=== PATIENT | female | born 1965 | race Caucasian/White ===

== ENCOUNTER → 2019-04-30 | Outpatient (CLI) | payer BC ==
--- NOTE | 2019-05-03 14:03 | MM ---
Reason for exam: screening (asymptomatic). Last mammogram was performed 7 years and 4 months ago. History: Benign excisional biopsy of the right breast, 2002. Took hormonal contraceptives for 5 years. Physical Findings: A clinical breast exam by your physician is recommended on an annual basis and results should be correlated with mammographic findings. MG 3D Screening Mammo W/Cad Bilateral CC and MLO view(s) were taken. Prior study comparison: December 27, 2011, bilateral digital screening mammo w/CAD. November 30, 2010, bilateral digital screening mammo w/CAD. There are scattered fibroglandular densities. There are benign appearing round dystrophic calcifications bilaterally. There is no discrete abnormality. ASSESSMENT: Benign, BI-RAD 2 RECOMMENDATION: Routine screening mammogram of both breasts in 1 year.
== END | disposition home or self-care (01) ==
LOC: RADMAMWWP 12:58
PROVIDERS: ATTEND Family Medicine
DX: Z12.31 Encounter for screening mammogram for malignant neoplasm of breast (principal)
CPT/HCPCS: 77063; 77067

== ENCOUNTER → 2023-07-14 | Outpatient (CLI) | payer OTHER ==
--- NOTE | 2023-07-14 13:58 | MM ---
Reason for Exam: Clinical finding. Last mammogram was performed 4 year(s) and 3 month(s) ago. Patient History: Menarche at age 13. First Full-Term at age 16. Hysterectomy at age 46. Patient used Hormonal Contraceptives for 5 years. 2002, Benign Excisional Biopsy on the right side. Risk Values: Jessie 5 year model risk: 1.0%. NCI Lifetime model risk: 6.9%. Prior Study Comparison: 12/27/2011 Bilateral Screening Mammogram, [facility]. 01/06/2012 Right Diagnostic Ultrasound, [facility]. 04/30/2019 Bilateral Screening Mammogram, [facility]. Tissue Density: There are scattered areas of fibroglandular density. Findings: Analyzed By CAD. The pattern is symmetrical. Scattered benign calcifications are present. No significant interval change is evident. No suspicious abnormality within the left breast to account for previous pelvic radiation. Patient reports this has resolved following antibiotics. No suspicious groups of microcalcifications, spiculated or lobular masses, architectural distortion or other secondary signs of malignancy are mammographically apparent. Overall Assessment: Benign, BI-RAD 2 Management: Screening Mammogram of both breasts in 1 year. A negative mammogram report should not preclude additional follow up of suspicious palpable abnormalities. Patient should continue monthly self breast exam. A clinical breast exam by your physician is recommended on an annual basis and results should be correlated with mammographic findings. Electronically signed and approved by: Matt Ba D.O. Radiologis
== END | disposition home or self-care (01) ==
LOC: RADMAMWWP 13:00
PROVIDERS: ATTEND Family Medicine
DX: R92.323 Mammographic fibroglandular density, bilateral breasts (principal); N61.0 Mastitis without abscess
CPT/HCPCS: 77062; 77066

== ENCOUNTER 2023-10-27 14:03 | Inpatient (IN) | payer OTHER ==
--- NOTE | 2023-10-27 14:44 | ED ---
Skin/Abscess/FB HPI - General Source: patient, RN notes reviewed Mode of arrival: ambulatory Limitations: no limitations <Francesca Mayer - Last Filed: 10/27/23 14:38> - General Source: patient, RN notes reviewed Mode of arrival: ambulatory Limitations: no limitations <Chantla Gandara - Last Filed: 10/27/23 18:30> - General Chief complaint: Skin/Abscess/Foreign Body Stated complaint: L breast pain Time Seen by Provider: 10/27/23 14:38 - History of Present Illness Initial comments: Quick Note: This is a 57-year-old female who presents to the emergency department for left breast pain and swelling. She has had 3 bouts of mastitis within the last several months. She finished a 10-day course of antibiotics about a month ago. States that each time she finishes antibiotics it resolves and then returns shortly afterwards. She has never had the area drained. States that this time the pain began yesterday and this morning she noticed an area that started to become red and raised, prompting her to come to the emergency department. Denies any fevers or chills. She does have fairly severe pain and nausea. (Francesca Mayer) 57-year-old female presented to the ER with a chief complaint of left breast pain and swelling. Patient reports she has had 3 episodes of mastitis within the last several of months. She has seen primary care physician and has had multiple rounds of antibiotics. She states her last dose was approximately 3 weeks ago. Patient reports this weekend she started to note a red ring around her nipple that was mildly painful. She states this morning she noticed the area was red, raised and extremely tender to touch. She does report nipple pratibha inage yesterday. Patient does report mild nausea due to the pain. She denies any fevers, chills, chest pain, shortness of breath, abdominal pain or peripheral edema. (Chantal Gandara) - Related Data Home Medications Medication Instructions Recorded Confirmed Levothyroxine Sodium [Synthroid] 175 mcg PO DAILY 11/01/14 10/27/23 Atorvastatin [Lipitor] 80 mg PO DAILY 10/27/23 10/27/23 Citalopram Hydrobromide [CeleXA] 20 mg PO DAILY 10/27/23 10/27/23 Cyclobenzaprine [Flexeril] 10 mg PO DAILY 10/27/23 10/27/23 LORazepam [Ativan] 1 mg PO DAILY 10/27/23 10/27/23 lamoTRIgine 100 mg PO DAILY 10/27/23 10/27/23 lisinopriL [Zestril] 10 mg PO DAILY 10/27/23 10/27/23 metFORMIN HCL [Glucophage] 850 mg PO DAILY 10/27/23 10/27/23 Allergies Allergy/AdvReac Type Severity Reaction Status Date / Time No Known Allergies Allergy Verified 10/27/23 16:22 Review of Systems ROS Other: All systems not noted in ROS Statement are negative. <Francesca Mayer - Last Filed: 10/27/23 14:38> ROS Other: All systems not noted in ROS Statement are negative. <Chantal Gandara - Last Filed: 10/27/23 18:30> ROS Statement: Those systems with pertinent positive or pertinent negative responses have been documented in the HPI. Past Medical History Past Medical History: Diabetes Mellitus, Thyroid Disorder History of Any Multi-Drug Resistant Organisms: None Reported Past Surgical History: Bladder Surgery, Hysterectomy, Orthopedic Surgery, Tubal Ligation Past Psychological History: Anxiety, Depression Smoking Status: Never smoker Past Alcohol Use History: Occasional Past Drug Use History: None Reported <Francesca Mayer - Last Filed: 10/27/23 14:38> General Exam Limitations: no limitations <Francesca Mayer - Last Filed: 10/27/23 14:38> Limitations: no limitations General appearance: alert, in no apparent distress Respiratory exam: Present: normal lung sounds bilaterally. Absent: respiratory distress, wheezes, rales, rhonchi, stridor Cardiovascular Exam: Present: regular rate, normal rhythm, normal heart sounds. Absent: systolic murmur, diastolic murmur, rubs, gallop, clicks Neurological exam: Present: alert, oriented X3, CN II-XII intact Skin exam: Present: warm, dry, intact, normal color, other (Left breast has an erythematous raised indurated area approximately 2 x 2 cm just inferior to nipple. Lymphangitis present. No nipple drainage. Tenderness to palpation. No palpable lymphadenopathy) <Chantal Gandara - Last Filed: 10/27/23 18:30> - General Exam Comments Initial Comments: Visual Physical Exam Vital signs reviewed General: Well-appearing, nontoxic, no acute distress. Head: Normocephalic, atraumatic Eyes: PERRLA, EOMI ENT: Airway patent Chest: Nonlabored breathing Skin: No visual rash, normal skin tone Neuro: Alert and oriented 3 Musculoskeletal: No gross abnormalities (Francesca Mayer) Course <Chantal Gandara - Last Filed: 10/27/23 18:30> Vital Signs 10/27/23 14:09 Temperature 97.9 F Pulse Rate 124 H Respiratory 18 Rate Blood Pressure 184/83 O2 Sat by Pulse 96 Oximetry - Reevaluation(s) Reevaluation #1: 10/27/23 16:[address] Nelson, [facility], who accepts medical admission. (Chantal Gandara) Medical Decision Making <Francesca Mayer - Last Filed: 10/27/23 14:38> - Lab Data Result diagrams: 10/27/23 14:27 10/27/23 14:27 - Radiology Data Radiology results: report reviewed, image reviewed <Chantal Gandara - Last Filed: 10/27/23 18:30> - Medical Decision Making I performed the QuickNote portion of this chart. Signed Francesca Mayer PA-C. (Francesca Mayer) Was pt. sent in by a medical professional or institution (STEFANIA Nelson, TERMINAL GAUGER SUPERVISOR, urgent care, hospital, or penitentiary...) When possible be specific @ -No Did you speak to anyone other than the patient for history (EMS, parent, family, police, friend...)? What history was obtained from this source @ -No Did you review nursing and triage notes (agree or disagree)? Why? @ -I reviewed and agree with nursing and triage notes Were old charts reviewed (outside hosp., previous admission, EMS record, old EKG, old radiological studies, urgent care reports/EKG's, penitentiary records)? Report findings @ -No old charts were reviewed Differential Diagnosis (chest pain, altered mental status, abdominal pain women, abdominal pain men, vaginal bleeding, weakness, fever, dyspnea, syncope, headache, dizziness, GI bleed, back pain, seizure, CVA, palpatations, mental health, musculoskeletal)? @ -Cellulitis, abscess, mastoiditis, cancer This list is not meant to be all- inclusive EKG interpreted by me (3pts min.). @ -None X-rays interpreted by me (1pt min.). @ -None done CT interpreted by me (1pt min.). @ -None done U/S interpreted by me (1pt. min.). @ -Left breast ultrasound significant for a hypoechoic collection subcutaneous tissue measuring 2.3 x 0.9 x 2.7 cm 2 cm from the nipple 6 o'clock position. Findings compatible with subcutaneous phlegmon versus abscess. Is a prominent left axillary lymph node. What testing was considered but not performed or refused? (CT, X-rays, U/S, labs)? Why? @ -None What meds were considered but not given or refused? Why? @ -None Did you discuss the management of the patient with other professionals (professionals i.e. , PA, TERMINAL GAUGER SUPERVISOR, lab, RT, psych nurse, social media marketing manager, psychiatric social worker, teacher, chief compliance officer, correctional case records supervisor)? Give summary @ -Yes, case discussed with Dr. Nelson, [facility] who accepts admission. Was smoking cessation discussed for >3mins.? @ -I discussed smoking cessation for greater than 3 minutes. The risk of smoking were discussed with the patient including but not limited to risks of cancer, stroke, coronary artery disease and COPD. Also discussed with patient were multiple methods of quitting smoking. Lastly we discussed the financial cost of smoking. Was critical care preformed (if so, how long)? @ -No Were there social determinants of health that impacted care today? How? (Homelessness, low income, unemployed, alcoholism, drug addiction, transportation, low edu. Level, literacy, decrease access to med. care, half-way, rehab)? @ -No Was there de-escalation of care discussed even if they declined (Discuss DNR or withdrawal of care, Hospice)? DNR status @ -No What co-morbidities impacted this encounter? (DM, HTN, Smoking, COPD, CAD, Cancer, CVA, ARF, Chemo, Hep., AIDS, mental health diagnosis, sleep apnea, morbid obesity)? @ -Smoker, diabetes, hypertension, thyroid disorder Was patient admitted / discharged? Hospital course, mention meds given and route, prescriptions, significant lab abnormalities, going to OR and other pertinent info. @ -Admitted. 57-year-old female presented to the ER with a chief complaint of left breast redness and pain. History and physical exam completed. Vitals upon arrival markable for heart rate of 124, blood pressure 184/83. History and physical exam completed. Vitals stable. Exam remarkable for a 2 cm x 2 cm r aised erythematous indurated area lesion to left breast, concerning of possible abscess. Lesion is inferior to nipple. There is no nipple discharge. Lymphangitis present. Laboratory studies obtained unremarkable. White blood cell count 8.9, lactic 1.4. CRP is elevated at 2.3. Ultrasound left breast remarkable for a hypoechoic collection subcutaneous tissue measuring 2.3 x 0.9 x 2.7 cm 2 cm from the nipple at 6 o'clock position. Findings compatible with a subcutaneous phlegmon versus abscess. Due to multiple rounds of outpatient antibiotics with minor and return of symptoms shortly after, admission considered for general surgery consultation. I discussed this case with [facility], Dr. Nelson, who accepts admission. Dr. Carreon on consult. Blood cultures obtained. Patient started on IV Zosyn. Patient agreeable for admission. Patient admitted in stable condition. Case discussed with ED attending, Dr. Rosa. Undiagnosed new problem with uncertain prognosis? @ -No Drug Therapy requiring intensive monitoring for toxicity (Heparin, Nitro, Insulin, Cardizem)? @ -No Were any procedures done? @ -No Diagnosis/symptom? @ -Mastitis rule out breast abscess/failed outpatient treatment/nicotine dependence Acute, or Chronic, or Acute on Chronic? @ -Acute Uncomplicated (without systemic symptoms) or Complicated (systemic symptoms)? @ -Complicated Side effects of treatment? @ -No Exacerbation, Progression, or Severe Exacerbation? @ -No Poses a threat to life or bodily function? How? (Chest pain, [place], PR, pneumonia, PE, COPD, DKA, ARF, appy, cholecystitis, CVA, Diverticulitis, Homicidal, Suicidal, threat to staff... and all critical care pts) @ -Possibly, infection can lead to sepsis. (Chantal Gandara) - Lab Data Lab Results 10/27/23 10/27/23 10/27/23 Range/Units 14:27 14:27 14:27 WBC 8.9 (3.8-10.6) k/uL RBC 4.17 (3.80-5.40) m/uL Hgb 13.4 (11.4-16.0) gm/dL Hct 41.5 (34.0-46.0) % MCV 99.4 (80.0-100.0) fL MCH 32.1 (25.0-35.0) pg MCHC 32.3 (31.0-37.0) g/dL RDW 14.0 (11.5-15.5) % Plt Count 205 (150-450) k/uL MPV 9.3 Neutrophils % 64 % Lymphocytes % 29 % Monocytes % 5 % Eosinophils % 2 % Basophils % 0 % Neutrophils # 5.6 (1.3-7.7) k/uL Lymphocytes # 2.5 (1.0-4.8) k/uL Monocytes # 0.4 (0-1.0) k/uL Eosinophils # 0.2 (0-0.7) k/uL Basophils # 0.0 (0-0.2) k/uL Sodium 139 (137-145) mmol/L Potassium 4.6 (3.5-5.1) mmol/L Chloride 106 (98-107) mmol/L Carbon Dioxide 25 (22-30) mmol/L Anion Gap 8 mmol/L BUN 11 (7-17) mg/dL Creatinine 0.60 (0.52-1.04) mg/dL Est GFR (CKD-EPI)AfAm >90 (>60 ml/min/1.73 sqM) Est GFR (CKD-EPI)NonAf >90 (>60 ml/min/1.73 sqM) Glucose 95 (74-99) mg/dL Plasma Lactic Acid Ryan 1.4 (0.7-2.0) mmol/L Calcium 9.7 (8.4-10.2) mg/dL Total Bilirubin 0.8 (0.2-1.3) mg/dL AST 22 (14-36) U/L ALT 15 (4-34) U/L Alkaline Phosphatase 92 (38-126) U/L C-Reactive Protein 2.3 H (<1.0) mg/dL Total Protein 6.9 (6.3-8.2) g/dL Albumin 4.3 (3.5-5.0) g/dL Disposition <Francesca Mayer - Last Filed: 10/27/23 14:38> Time of Disposition: 16:28 <Chantal Gandara - Last Filed: 10/27/23 18:30> Clinical Impression: Breast abscess, Failure of outpatient treatment, Mastitis, Nicotine dependence Disposition: ADMITTED IP TO THIS HOSP Condition: Stable Referrals: Coty Gooden MD [Primary Care Provider] - 1-2 days
[2023-10-27 15:12] LABS: ALT 15 U/L (4-34); AST 22 U/L (14-36); African American GFR (CKD) >90 (>60 ml/min/1.73 sqM); Albumin 4.3 g/dL (3.5-5.0); Alkaline Phosphatase 92 U/L (38-126); Anion Gap 8 mmol/L; Basophils % (A) 0 %; Blood Urea Nitrogen 11 mg/dL (7-17); C Reactive Protein 2.3 mg/dL (<1.0); Calcium 9.7 mg/dL (8.4-10.2); Carbon Dioxide 25 mmol/L (22-30); Chloride 106 mmol/L (98-107); Eosinophils # (A) 0.2 k/uL (0-0.7); Eosinophils % (A) 2 %; Glucose 95 mg/dL (74-99); HCT 41.5 % (34.0-46.0); HGB 13.4 gm/dL (11.4-16.0); Lymphocytes # (A) 2.5 k/uL (1.0-4.8); Lymphocytes % (A) 29 %; MCH 32.1 pg (25.0-35.0); MCHC 32.3 g/dL (31.0-37.0); MCV 99.4 fL (80.0-100.0); Mean Platelet Volume 9.3; Monocytes # (A) 0.4 k/uL (0-1.0); Monocytes % (A) 5 %; Neutrophils # (A) 5.6 k/uL (1.3-7.7); Neutrophils % (A) 64 %; Non-African American GFR(CKD) >90 (>60 ml/min/1.73 sqM); Platelet Count 205 k/uL (150-450); Potassium 4.6 mmol/L (3.5-5.1); RBC 4.17 m/uL (3.80-5.40); Sodium 139 mmol/L (137-145); Total Bilirubin 0.8 mg/dL (0.2-1.3); Total Protein 6.9 g/dL (6.3-8.2); WBC 8.9 k/uL (3.8-10.6)
--- NOTE | 2023-10-27 15:29 | USB ---
Reason for Exam: Clinical finding. Patient History: Menarche at age 13. First Full-Term at age 16. Hysterectomy at age 46. Patient used Hormonal Contraceptives for 5 years. 2002, Benign Excisional Biopsy on the right side. Risk Values: Jessie 5 year model risk: 1.0%. NCI Lifetime model risk: 6.9%. Technique: Method: Targeted. Prior Study Comparison: 12/27/2011 Bilateral Screening Mammogram, [facility]. 04/30/2019 Bilateral Screening Mammogram, [facility]. 07/14/2023 Bilateral MG 3D diag mammo w/cad IAM, [facility]. Findings: The lower section of the breast of the left breast, the axilla of the left breast and the retroareolar of the left breast were scanned. There is a hypoechoic collection subcutaneous tissue measuring 2.3 x 0.9 x 2.7 cm 2 cm from the nipple 6:00 position. Findings can be compatible subcutaneous phlegmon versus abscess. There is a prominent cortex on the left axillary lymph node measuring 0.4 cm. Normal less than 0.3 cm. Overall Assessment: Probably benign, BI-RAD 3 Management: Surgical Consultation of the left breast. A clinical breast exam by your physician is recommended on an annual basis and results should be correlated with mammographic findings. This exam should not preclude additional follow-up of suspicious palpable abnormalities. Results were given to the patient verbally at the time of exam. Electronically signed and approved by: Matt Ba D.O. Radiologis
[2023-10-27] MEDS ORDERED: NALOXONE 0.4 MG/ML 1 ML VIAL IV PRN (16:25)
[2023-10-27] MEDS ORDERED: ONDANSETRON 4 MG/2 ML VIAL IVP PRN (16:25)
[2023-10-27] MEDS: PIPERACILLIN-TAZOBACTAM 3.375 GM in SODIUM CHLORIDE 0.9% 100 ML IVPB STA (16:40)
[2023-10-27] MEDS: SODIUM CHLORIDE 0.9% 1,000 ML IV SCH (16:42)
[2023-10-27 19:29] LABS: Erythrocyte Sedimentation Rate 40 mm/Hr (0-30)
[2023-10-27] MEDS: NICOTINE 14MG/24HR PATCH TRANSDERM STA (20:14)
[2023-10-27 21:01] LABS: Glucose,Whole Blood 117 mg/dL (70-110)
[2023-10-27] MEDS: ACETAMINOPHEN TAB 325 MG TAB PO PRN (22:55)
[2023-10-27] MEDS: lisinopriL 10 MG TAB PO SCH (22:55)
[2023-10-28] MEDS: PIPERACILLIN-TAZOBACTAM 3.375 GM in SODIUM CHLORIDE 0.9% 100 ML IVPB SCH (00:55)
[2023-10-28] MEDS: LEVOTHYROXINE 88 MCG TAB PO SCH (06:00)
[2023-10-28] MEDS ORDERED: lisinopriL 10 MG TAB PO SCH (09:00)
[2023-10-28] MEDS: metFORMIN 850 MG TAB PO SCH (10:03)
[2023-10-28] MEDS: LORazepam 1 MG TAB PO SCH (10:03)
[2023-10-28] MEDS: lamoTRIgine 100 MG TAB PO SCH (10:03)
[2023-10-28] MEDS: CITALOPRAM HYDROBROMIDE 20 MG TAB PO SCH (10:03)
[2023-10-28] MEDS: ATORVASTATIN 80 MG TAB PO SCH (10:03)
[2023-10-28] MEDS: NICOTINE 14MG/24HR PATCH TRANSDERM SCH (16:10)
[2023-10-28] MEDS ORDERED: VANCOMYCIN IV PER PHARMACY 1 EACH MISC MISCELLANE PRN (16:19)
[2023-10-28] MEDS: VANCOMYCIN 1,500 MG in SODIUM CHLORIDE 0.9% 500 ML 500 ML IVPB SCH (17:01)
--- NOTE | 2023-10-28 22:55 | P.CONS ---
History of Present Illness - Reason for Consult Consult date: 10/28/23 Left breast abscess Requesting physician: Maria De Jesus Nelson - Chief Complaint Left breast pain and swelling x few days - History of Present Illness Patient is a 57-year-old female with a past medical history significant diabetes mellitus anxiety depression hypothyroidism apparently the patient has been dealing with left breast cellulitis for the last few months and has been treated with multiple courses of oral antibiotic patient not sure exactly the name of this antibiotic but did not mention penicillin derivative patient now presenting to [facility] ER for evaluation of left breast pain and swelling that apparently has been getting worse for the last few days patient denies any history of any trauma has been complaining of area of swelling and redness just below the nipple on the left breast area describing pain to be sharp moderate intensity without radiation with associated swelling redness but no drainage denies high-grade fever on presentation to the hospital the patient was afebrile and no fever have been recorded subsequently patient was not tachycardic hypotensive or hypoxic patient did have white count of 8.9 creatinine 0.60 liver isms are normal CRP is 2.3 patient was started on Zosyn admitted to the hospital infectious disease was consulted for further management of antibiotic therapy patient did have a breast ultrasound which did shows 2.3 x 0.9X 2.7 cm fluid collection concerning for possible abscess Review of Systems Positive point and negatives has been mentioned in the HPI, complete review of systems was performed and all other systems are negative Past Medical History Past Medical History: Diabetes Mellitus, Thyroid Disorder History of Any Multi-Drug Resistant Organisms: None Reported Past Surgical History: Bladder Surgery, Hysterectomy, Orthopedic Surgery, Tubal Ligation Past Psychological History: Anxiety, Depression Smoking Status: Never smoker Past Alcohol Use History: Occasional Past Drug Use History: None Reported Medications and Allergies Home Medications Medication Instructions Recorded Confirmed Type Levothyroxine Sodium [Synthroid] 175 mcg PO DAILY 11/01/14 10/27/23 History Atorvastatin [Lipitor] 80 mg PO DAILY 10/27/23 10/27/23 History Citalopram Hydrobromide [CeleXA] 20 mg PO DAILY 10/27/23 10/27/23 History Cyclobenzaprine [Flexeril] 10 mg PO DAILY 10/27/23 10/27/23 History LORazepam [Ativan] 1 mg PO DAILY 10/27/23 10/27/23 History lamoTRIgine 100 mg PO DAILY 10/27/23 10/27/23 History lisinopriL [Zestril] 10 mg PO DAILY 10/27/23 10/27/23 History metFORMIN HCL [Glucophage] 850 mg PO DAILY 10/27/23 10/27/23 History Cephalexin [Keflex] 500 mg PO Q6HR 14 Days #56 cap 10/31/23 Rx Allergies Allergy/AdvReac Type Severity Reaction Status Date / Time No Known Allergies Allergy Verified 10/27/23 16:22 Physical Exam Vitals: Vital Signs Temp Pulse Pulse Resp BP BP Pulse Ox 10/28/23 08:00 97.9 F 74 16 117/76 97 10/28/23 02:00 97.7 F 78 16 110/71 10/27/23 21:36 97.1 F L 73 16 131/78 98 10/27/23 21:02 97.1 F L 73 16 131/78 98 10/27/23 20:17 98.3 F 76 20 142/74 97 10/27/23 18:38 74 18 137/74 99 Intake and Output 10/28/23 10/28/23 10/28/23 06:59 14:59 22:59 Other: # Voids 2 GENERAL DESCRIPTION: Middle-aged female lying in bed, no distress. No tachypnea or accessory muscle of respiration use. HEENT: Shows Pallor , no scleral icterus. Oral mucous membrane is dry. No pharyngeal erythema or thrush NECK: Trachea central, no thyromegaly. LUNGS: Unlabored breathing. Clear to auscultation anteriorly. No wheeze or crackle. HEART: S1, S2, regular rate and rhythm. No loud murmur ABDOMEN: Soft, no tenderness , guarding or rigidity, no organomegaly EXTREMITIES: No edema of feet. SKIN: Left breast examined in the presence of RN did have area of induration just below the nipple which is red warm and tender to touch no drainage NEUROLOGICAL: The patient is awake, alert, oriented x3, mood and affect normal. Results CBC & Chem 7: 10/29/23 06:55 10/31/23 08:00 Labs: Abnormal Lab Results - Last 24 Hours (Table) 10/27/23 10/27/23 Range/Units 14:27 21:00 ESR 40 H (0-30) mm/Hr POC Glucose (mg/dL) 117 H (70-110) mg/dL Assessment and Plan (1) Cellulitis of left breast Current Visit: Yes Status: Acute Code(s): N61.0 - MASTITIS WITHOUT ABSCESS SNOMED Code(s): 75834433 (2) Failure of outpatient treatment Current Visit: Yes Status: Acute Code(s): Z78.9 - OTHER SPECIFIED HEALTH STA TUS SNOMED Code(s): 341821941 (3) Left breast abscess Current Visit: Yes Status: Acute Code(s): N61.1 - ABSCESS OF THE BREAST AND NIPPLE SNOMED Code(s): 07422527 Plan: 1patient presented to hospital with left breast pain swelling and redness and has been diagnosed with a left breast abscess in this patient with recurrent history and has been on multiple courses of for antibiotic in outpatient setting high clinical suspicious for staphylococcal infection with a question of MRSA 2-await surgical evaluation and drainage of the abscess and culture 3-discontinue Zosyn 4-we will start the patient on vancomycin pharmacy to dose and cefepime pending drainage and culture Question concern answered We will follow on clinical condition and cultures to further adjust medication if needed Thank you for this consultation we will follow the patient along with you Dictation was produced using [employer] dictation software. please excuse any grammatical, word or spelling errors. Time with Patient: Greater than 30
--- NOTE | 2023-10-29 00:15 | P.HPIM ---
History of Present Illness H&P Date: 10/28/23 Chief Complaint: Left breast swelling and redness Patient is a 57-year-old female with a long history of diabetes type 2 [id number], hypothyroidism, hyperlipidemia, anxiety/depression presents to ER with complaints of left breast swelling and redness. Patient has been having left breast cellulitis/infection for the past 1 month and completed 10-day antibiotic course followed by another 1 week with 2 g of antibiotics. Patient does not recollect the antibiotic name. Initially swelling and redness went down but started coming back again. Yesterday she noted to have the swelling and redness with bulging but denies any purulent discharge from the infection area but did have some nipple discharge yesterday.. No fever no chills. Patient did complain of pain on admission. No complaints of chest pain or shortness of breath. No nausea vomiting abdominal pain or diarrhea. Breast ultrasound was done in the ER showed the lower section of the breast the axilla and of the left breast and the rectal area lower of the left breast was scanned. Hypoechoic collection subcutaneous tissue Findings skin compatible subcutaneous phlegmon versus abscess. Laboratory data showed WBC 8.9 hemoglobin 13.4 and platelet 205 sodium 139 potassium 4.6 chloride 106 bicarb is 25 BUN 11 creatinine 0.6 and blood sugar is 95. Urinalysis not elevated. CRP 2.3 and ESR 40. Review of Systems Constitutional: Patient denies any fever or chills . No generalized weakness or weight loss. Abdomen: Patient denied nausea vomiting and diarrhea and abdominal pain. Cardiovascular: Patient denies any chest pain or short of breath no palpitations. Respiratory: patient denied any cough or sputum production. No shortness of breath Neurologic: Patient denied any numbness or tingling. no headache. Musculoskeletal: Patient denies any complaints of joint swelling or deformity. Skin: Negative Psychiatric: Negative Endocrine: No heat or cold intolerance. No recent weight gain. Genitourinary: No dysuria or hematuria. All other 14 point ROS negative except the above Past Medical History Past Medical History: Diabetes Mellitus, Thyroid Disorder History of Any Multi-Drug Resistant Organisms: None Reported Past Surgical History: Bladder Surgery, Hysterectomy, Orthopedic Surgery, Tubal Ligation Past Psychological History: Anxiety, Depression Smoking Status: Never smoker Past Alcohol Use History: Occasional Past Drug Use History: None Reported Medications and Allergies Home Medications Medication Instructions Recorded Confirmed Type Levothyroxine Sodium [Synthroid] 175 mcg PO DAILY 11/01/14 10/27/23 History Atorvastatin [Lipitor] 80 mg PO DAILY 10/27/23 10/27/23 History Citalopram Hydrobromide [CeleXA] 20 mg PO DAILY 10/27/23 10/27/23 History Cyclobenzaprine [Flexeril] 10 mg PO DAILY 10/27/23 10/27/23 History LORazepam [Ativan] 1 mg PO DAILY 10/27/23 10/27/23 History lamoTRIgine 100 mg PO DAILY 10/27/23 10/27/23 History lisinopriL [Zestril] 10 mg PO DAILY 10/27/23 10/27/23 History metFORMIN HCL [Glucophage] 850 mg PO DAILY 10/27/23 10/27/23 History Allergies Allergy/AdvReac Type Severity Reaction Status Date / Time No Known Allergies Allergy Verified 10/27/23 16:22 Physical Exam Vitals: Vital Signs Temp Pulse Pulse Resp BP BP Pulse Ox 10/28/23 08:00 97.9 F 74 16 117/76 97 10/28/23 02:00 97.7 F 78 16 110/71 10/27/23 21:36 97.1 F L 73 16 131/78 98 10/27/23 21:02 97.1 F L 73 16 131/78 98 10/27/23 20:17 98.3 F 76 20 142/74 97 10/27/23 18:38 74 18 137/74 99 10/27/23 14:09 97.9 F 124 H 18 184/83 96 Intake and Output 10/27/23 10/28/23 10/28/23 22:59 06:59 14:59 Other: # Voids 2 Weight 99.79 kg PHYSICAL EXAMINATION: Patient is lying in the bed comfortably, no acute distress, awake alert and oriented.. HEENT: Normocephalic. Neck is supple. Pupils reactive. Nostrils clear. Oral cavity is moist. Neck reveals no JVD, carotid bruits, or thyromegaly. CHEST EXAMINATION: Trachea is central. Symmetrical expansion. Lung galindo clear to auscultation and percussion. 3 x 4 cm left breast redness with swelling and tenderness at 5 o'clock position. CARDIAC: Normal S1, S2 with no gallops. No murmurs ABDOMEN: Soft. Bowel sounds normal. No organomegaly. No abdominal bruits. Extremities: reveal no edema. No clubbing or cyanosis Neurologically awake, alert, oriented x3 with well-coordinated movements. No focal deficits noted Skin: No rash or skin lesions. Psychiatric: Coperative. Nonsuicidal Musculoskeletal: No joint swelling or deformity. Normal range of motion. Results CBC & Chem 7: 10/27/23 14:27 10/27/23 14:27 Labs: Abnormal Lab Results - Last 24 Hours (Table) 10/27/23 10/27/23 10/27/23 Range/Units 14:27 14: 21:00 ESR 40 H (0-30) mm/Hr POC Glucose (mg/dL) 117 H (70-110) mg/dL C-Reactive Protein 2.3 H (<1.0) mg/dL Thrombosis Risk Factor Assmnt - DVT/VTE Prophylaxis DVT/VTE Prophylaxis: Pharmacologic Prophylaxis ordered - Choose All That Apply Any of the Below Risk Factors Present?: Yes Each Factor Represents 1 point: Age 41-60 years Other Risk Factors: No Other congenital or acquired thrombophilia - If yes, enter type in comment: No Thrombosis Risk Factor Assessment Total Risk Factor Score: 1 Thrombosis Risk Factor Assessment Level: Low Risk Assessment and Plan Assessment: Left breast abscess with surrounding cellulitis. Failed outpatient antibiotic therapy Diabetes type 2 [id number] Hypothyroidism Anxiety/depression DVT prophylax with heparin subcu Plan: Patient will be continued on IV hydration with normal saline. Patient was given a dose of Zosyn in the ER. Will be started on vancomycin and ID consult. General surgery consulted for possible I&D. Start back on home medications and insulin regimen. Continue to follow closely. Time with Patient: Greater than 30
[2023-10-29] MEDS: CEFEPIME 2 GM in SODIUM CHLORIDE 0.9% 100 ML IVPB SCH (00:17)
[2023-10-29 07:13] LABS: Basophils % (A) 0 %; Eosinophils # (A) 0.1 k/uL (0-0.7); Eosinophils % (A) 1 %; HCT 38.2 % (34.0-46.0); Lymphocytes # (A) 2.8 k/uL (1.0-4.8); Lymphocytes % (A) 33 %; MCH 32.2 pg (25.0-35.0); MCHC 31.4 g/dL (31.0-37.0); MCV 102.4 fL (80.0-100.0); Macrocytosis Slight; Monocytes # (A) 0.5 k/uL (0-1.0); Monocytes % (A) 5 %; Neutrophils # (A) 5.1 k/uL (1.3-7.7); Neutrophils % (A) 59 %; Platelet Count 184 k/uL (150-450); RBC 3.73 m/uL (3.80-5.40); RDW 13.8 % (11.5-15.5); WBC 8.6 k/uL (3.8-10.6)
[2023-10-29 07:28] LABS: African American GFR (CKD) >90 (>60 ml/min/1.73 sqM); Anion Gap 5 mmol/L; Blood Urea Nitrogen 12 mg/dL (7-17); Carbon Dioxide 24 mmol/L (22-30); Chloride 109 mmol/L (98-107); Glucose 129 mg/dL (74-99); Non-African American GFR(CKD) >90 (>60 ml/min/1.73 sqM); Potassium 4.2 mmol/L (3.5-5.1); Sodium 138 mmol/L (137-145)
[2023-10-29] MEDS: HEPARIN SODIUM,PORCINE 5,000 UNIT/ML 1 ML VIAL SQ SCH (07:56)
[2023-10-29] MEDS: IBUPROFEN 400 MG TAB PO PRN (08:59)
[2023-10-29] MEDS: HYDROmorphone 1 MG/ML 1 ML SYRINGE IVP STA (10:19)
--- NOTE | 2023-10-29 15:17 | P.GSCN ---
History of Present Illness Consult date: 10/29/23 History of present illness: CHIEF COMPLAINT: Left breast abscess HISTORY OF PRESENT ILLNESS: This is a 57-year-old female who presented the hospital with increased pain swelling and redness of her left breast. Patient has had multiple rounds of antibiotics for this infection. She does have a history of diabetes. Ultrasound of the breast reports hypoechoic collection subcutaneous tissue measuring 2.3 x 0.9 x 2.7 cm 2 cm from the nipple 6 o'clock position. Findings can be compatible subcutaneous phlegmon versus abscess. Surgical service has been consulted for left breast abscess. PAST MEDICAL HISTORY: Diabetes mellitus, thyroid disorder PAST SURGICAL HISTORY: Bladder Surgery, Hysterectomy, Orthopedic Surgery, Tubal Ligation MEDICATIONS: See below ALLERGIES: See below SOCIAL HISTORY: No illicit drug use. REVIEW OF SYSTEMS: CONSTITUTIONAL: Denies fever or chills. HEENT: Denies blurred vision, vision changes, or eye pain. Denies hemoptysis CARDIOVASCULAR: Denies chest pain or pressure. RESPIRATORY: No shortness of breath. GASTROINTESTINAL: Denies abdominal pain HEMATOLOGIC: Denies bleeding disorders. GENITOURINARY: Denies any blood in urine or increased urinary frequency. PHYSICAL EXAM: VITAL SIGNS: Reviewed GENERAL: Well-developed in no acute distress. HEENT: No sclera icterus. Extraocular movements grossly intact. Moist buccal mucosa. Head is atraumatic, normocephalic. No nasal drainage. ABDOMEN: Soft. Nondistended. Nontender NEUROLOGIC: Alert and oriented. Cranial nerves II through XII grossly intact. Breast: Left breast erythema swelling and induration area of fluctuance at the 7 o'clock position below the nipple. No drainage LABORATORY DATA: WBC 8.6 Hgb 12 platelets 184 Sodium 138 potassium 4.2 creatinine 0.63 IMAGING: Breast ultrasound as stated above ASSESSMENT: 1. Left breast abscess status post bedside incision and drainage by Dr. Posada PLAN: -Patient is status post bedside incision and drainage of left breast abscess. Cultures were obtained. -Continue antibiotics per infectious disease -Continue pain management Thank you for this consultation Physician Consumer Safety Inspector note has been reviewed by physician. Signing provider agrees with the documented findings, assessment, and plan of care. Past Medical History Past Medical History: Diabetes Mellitus, Thyroid Disorder History of Any Multi-Drug Resistant Organisms: None Reported Past Surgical History: Bladder Surgery, Hysterectomy, Orthopedic Surgery, Tubal Ligation Past Psychological History: Anxiety, Depression Smoking Status: Never smoker Past Alcohol Use History: Occasional Past Drug Use History: None Reported Medications and Allergies Home Medications Medication Instructions Recorded Confirmed Type Levothyroxine Sodium [Synthroid] 175 mcg PO DAILY 11/01/14 10/27/23 History Atorvastatin [Lipitor] 80 mg PO DAILY 10/27/23 10/27/23 History Citalopram Hydrobromide [CeleXA] 20 mg PO DAILY 10/27/23 10/27/23 History Cyclobenzaprine [Flexeril] 10 mg PO DAILY 10/27/23 10/27/23 History LORazepam [Ativan] 1 mg PO DAILY 10/27/23 10/27/23 History lamoTRIgine 100 mg PO DAILY 10/27/23 10/27/23 History lisinopriL [Zestril] 10 mg PO DAILY 10/27/23 10/27/23 History metFORMIN HCL [Glucophage] 850 mg PO DAILY 10/27/23 10/27/23 History Allergies Allergy/AdvReac Type Severity Reaction Status Date / Time No Known Allergies Allergy Verified 10/27/23 16:22 Surgical - Exam Vital Signs Temp Pulse Resp BP Pulse Ox 97.9 F 124 H 18 184/83 96 10/27/23 14:09 10/27/23 14:09 10/27/23 14:09 10/27/23 14:09 10/27/23 14:09 Results - Labs 10/29/23 06:55 10/29/23 06:55 Abnormal Lab Results - Last 24 Hours (Table) 10/29/23 10/29/23 Range/Units 06:55 06:55 RBC 3.73 L (3.80-5.40) m/uL MCV 102.4 H (80.0-100.0) fL Chloride 109 H (98-107) mmol/L Glucose 129 H (74-99) mg/dL Microbiology - Last 24 Hours (Table) 10/27/23 16:29 Blood Culture - Preliminary Blood 10/27/23 16:29 Blood Culture - Preliminary Blood Diabetes panel 10/29/23 Range/Units 06:55 Sodium 138 (137-145) mmol/L Potassium 4.2 (3.5-5.1) mmol/L Chloride 109 H (98-107) mmol/L Carbon Dioxide 24 (22-30) mmol/L BUN 12 (7-17) mg/dL Creatinine 0.63 (0.52-1.04) mg/dL Glucose 129 H (74-99) mg/dL Calcium 9.0 (8.4-10.2) mg/dL Calcium panel 10/29/23 Range/Units 06:55 Calcium 9.0 (8.4-10.2) mg/dL Pituitary panel 10/29/23 Range/Units 06:55 Sodium 138 (137-145) mmol/L Potassium 4.2 (3.5-5.1) mmol/L Chloride 109 H (98-107) mmol/L Carbon Dioxide 24 (22-30) mmol/L BUN 12 (7-17) mg/dL Creatinine 0.63 (0.52-1.04) mg/dL Glucose 129 H (74-99) mg/dL Calcium 9.0 (8.4-10.2) mg/dL Adrenal panel 10/29/23 Range/Units 06:55 Sodium 138 (137-145) mmol/L Potassium 4.2 (3.5-5.1) mmol/L Chloride 109 H (98-107) mmol/L Carbon Dioxide 24 (22-30) mmol/L BUN 12 (7-17) mg/dL Creatinine 0.63 (0.52-1.04) mg/dL Glucose 129 H (74-99) mg/dL Calcium 9.0 (8.4-10.2) mg/dL
--- NOTE | 2023-10-29 22:02 | P.PN ---
Subjective Patient is a 57-year-old female with a long history of diabetes type 2 [id number], hypothyroidism, hyperlipidemia, anxiety/depression pre sents to ER with complaints of left breast swelling and redness. Patient has been having left breast cellulitis/infection for the past 1 month and completed 10-day antibiotic course followed by another 1 week with 2 g of antibiotics. Patient does not recollect the antibiotic name. Initially swelling and redness went down but started coming back again. Yesterday she noted to have the swelling and redness with bulging but denies any purulent discharge from the infection area but did have some nipple discharge yesterday.. No fever no chills. Patient did complain of pain on admission. No complaints of chest pain or shortness of breath. No nausea vomiting abdominal pain or diarrhea. Breast ultrasound was done in the ER showed the lower section of the breast the axilla and of the left breast and the rectal area lower of the left breast was scanned. Hypoechoic collection subcutaneous tissue Findings skin compatible subcutaneous phlegmon versus abscess. Laboratory data showed WBC 8.9 hemoglobin 13.4 and platelet 205 sodium 139 potassium 4.6 chloride 106 bicarb is 25 BUN 11 creatinine 0.6 and blood sugar is 95. Urinalysis not elevated. CRP 2.3 and ESR 40. 7/ Patient s/p I&D and debridement of her left breast abscess infection Wound culture was sent Pain controlled Patient remains on cefepime and IV vancomycin She is on normal saline 75 mL/h Surgery case and ID following closely Increase inflammatory markers of CRP 2.3 and ESR 40 Blood culture is pending Wound culture is pending Review of systems CONSTITUTIONAL: No fever, no malaise, no fatigue. HEENT: No recent visual problems or hearing problems. Denied any sore throat. CARDIOVASCULAR: No orthopnea, PND, no palpitations, no syncope. PULMONARY: No shortness of breath, no cough, no hemoptysis. GASTROINTESTINAL: No diarrhea, no nausea, no vomiting, no abdominal pain Active Medications Generic Name Dose Route Start Last Admin Trade Name Freq PRN Reason Stop Dose Admin Acetaminophen 650 mg 10/27/23 16:25 10/29/23 18:52 Acetaminophen Tab 325 Mg Tab PO 650 mg Q6HR PRN Administration Mild Pain or Fever > 100.5 Atorvastatin Calcium 80 mg 10/28/23 09:00 10/29/23 07:57 Atorvastatin 80 Mg Tab PO 80 mg DAILY ED Administration Citalopram Hydrobromide 20 mg 10/28/23 09:00 10/29/23 07:57 Citalopram Hydrobromide 20 Mg Tab PO 20 mg DAILY ED Administration Heparin Sodium (Porcine) 5,000 unit 10/29/23 08:00 10/29/23 16:02 Heparin Sodium,Porcine 5,000 Unit/Ml 1 Ml Vial SQ 5,000 unit Q8HR ED Administration Sodium Chloride 1,000 mls @ 75 mls/hr 10/27/23 16:30 10/29/23 17:52 Saline 0.9% IV Not Given .[id number] ED Cefepime HCl 2 gm/ Sodium 100 mls @ 25 mls/hr 10/29/23 00:00 10/29/23 16:02 Chloride IVPB 25 mls/hr Q8HR ED Administration Protocol Vancomycin HCl 1,500 mg/ 500 mls @ 167 mls/hr 10/28/23 17:00 10/29/23 17:35 Sodium Chloride IVPB 167 mls/hr Q12H ED Administration Ibuprofen 400 mg 10/27/23 16:25 10/29/23 17:34 Ibuprofen 400 Mg Tab PO 400 mg Q6HR PRN Administration Mild Pain or Fever > 100.5 Lamotrigine 100 mg 10/28/23 09:00 10/29/23 07:57 Lamotrigine 100 Mg Tab PO 100 mg DAILY ED Administration Levothyroxine Sodium 176 mcg 10/28/23 06:30 10/29/23 05:47 Levothyroxine 88 Mcg Tab PO 176 mcg DAILY@0630 ED Administration Lisinopril 10 mg 10/27/23 22:00 10/29/23 07:57 Lisinopril 10 Mg Tab PO 10 mg DAILY ED Administration Lorazepam 1 mg 10/28/23 09:00 10/29/23 07:57 Lorazepam 1 Mg Tab PO 1 mg DAILY ED Administration Metformin HCl 850 mg 10/28/23 09:00 10/29/23 07:57 Metformin 850 Mg Tab PO 850 mg DAILY ED Administration Naloxone HCl 0.2 mg 10/27/23 16:25 Naloxone 0.4 Mg/Ml 1 Ml Vial IV Q2M PRN Opioid Reversal Nicotine 1 patch 10/28/23 16:00 07/17/24 10:52 Nicotine 14mg/24hr Patch TRANSDERM 1 patch DAILY ED Administration Ondansetron HCl 4 mg 10/27/23 16:25 Ondansetron 4 Mg/2 Ml Vial IVP Q8HR PRN Nausea And Vomiting Objective - Vital Signs Vital signs: Vital Signs Temp 98.0 F 10/29/23 08:00 Pulse 74 10/29/23 08:00 Resp 16 10/29/23 08:00 BP 132/64 10/29/23 08:00 Pulse Ox 97 10/29/23 08:00 FiO2 Intake & Output 10/28/23 10/29/23 10/29/23 18:59 06:59 18:59 Intake Total 300 Balance 300 Intake: Oral 300 Other: # Voids 2 1 - Exam GENERAL: The patient is alert and oriented x3, not in any acute distress. Well developed, well nourished. HEENT: Pupils are round and equally reacting to light. EOMI. No scleral icterus. No conjunctival pallor. Normocephalic, atraumatic. No pharyngeal erythema. No thyromegaly. CARDIOVASCULAR: S1 and S2 present. No murmurs, rubs, or gallops. -PULMONARY: Chest is clear to auscultation, no wheezing , no crackles. Left breast redness swelling at the center of the left breast ABDOMEN: Soft, nontender, nondistended, normoactive bowel sounds. No palpable organomegaly. MUSCULOSKELETAL: No joint swelling or deformity. EXTREMITIES: No cyanosis, clubbing, or pedal edema. NEUROLOGICAL: Gross neurological examination did not reveal any focal deficits. SKIN: No rashes. no petechiae. - Labs CBC & Chem 7: 10/29/23 06:55 10/29/23 06:55 Labs: Abnormal Lab Results - Last 24 Hours (Table) 10/29/23 10/29/23 Range/Units 06:55 06:55 RBC 3.73 L (3.80-5.40) m/uL MCV 102.4 H (80.0-100.0) fL Chloride 109 H (98-107) mmol/L Glucose 129 H (74-99) mg/dL Microbiology - Last 24 Hours (Table) 10/27/23 16:29 Blood Culture - Preliminary Blood 10/27/23 16:29 Blood Culture - Preliminary Blood Assessment and Plan Assessment: Left breast abscess with surrounding cellulitis. Failed outpatient antibiotic therapy s/p I&D 10/28 Diabetes type 2 [id number] Hypothyroidism Anxiety/depression DVT prophylax with heparin subcu Plan: Patient will be continued on IV hydration with normal saline. Continue with cefepime and vancomycin and ID consult. Follow-up wound culture Infectious disease consult Start back on home medications and insulin regimen. Continue to follow closely. GI and DVT prophylaxis Time with Patient: Greater than 30
--- NOTE | 2023-10-30 07:53 | P.PN ---
Subjective Progress Note Date: 10/29/23 Principal diagnosis: Reason for follow-up with left breast abscess and cellulitis Patient is a 57-year-old female with a past medical history significant diabetes mellitus anxiety depression hypothyroidism apparently the patient has been dealing with left breast cellulitis for the last few months and has been treated with multiple courses of oral antibiotic now presented to hospital with worsening swelling redness to the left breast area has been diagnosed with a left breast abscess cellulitis and did have a bedside drainage completed on 10/29/2023. On today's evaluation that is 10/29/2023, the patient continues to be afebrile, the patient is on room air and breathing comfortably, the Pt denies having any chest pain or cough, the patient denies having any abdominal pain no vomiting or any diarrhea, still having pain to the left breast area but no worsening or drainage. Patient white count is 8.6 creatinine 0.63 cultures pending Objective - Vital Signs Vital signs: Vital Signs Temp 98.0 F 10/29/23 08:00 Pulse 74 10/29/23 08:00 Resp 16 10/29/23 08:00 BP 132/64 10/29/23 08:00 Pulse Ox 97 10/29/23 08:00 FiO2 Intake & Output 10/28/23 10/29/23 10/29/23 18:59 06:59 18:59 Intake Total 300 Balance 300 Intake: Oral 300 Other: # Voids 2 1 - Exam GENERAL DESCRIPTION: Middle-aged female lying in bed in no distress RESPIRATORY SYSTEM: Unlabored breathing , decreased breath sounds at bases HEART: S1 S2 regular rate and rhythm , ABDOMEN: Soft , no tenderness EXTREMITIES: No edema feet - Labs CBC & Chem 7: 10/29/23 06:55 10/29/23 06:55 Labs: Abnormal Lab Results - Last 24 Hours (Table) 10/29/23 10/29/23 Range/Units 06:55 06:55 RBC 3.73 L (3.80-5.40) m/uL MCV 102.4 H (80.0-100.0) fL Chloride 109 H (98-107) mmol/L Glucose 129 H (74-99) mg/dL Microbiology - Last 24 Hours (Table) 10/27/23 16:29 Blood Culture - Preliminary Blood 10/27/23 16:29 Blood Culture - Preliminary Blood Assessment and Plan (1) Left breast abscess Current Visit: Yes Status: Acute Code(s): N61.1 - ABSCESS OF THE BREAST AND NIPPLE SNOMED Code(s): 36660899 (2) Cellulitis of left breast Current Visit: Yes Status: Acute Code(s): N61.0 - MASTITIS WITHOUT ABSCESS SNOMED Code(s): 70296863 (3) Failure of outpatient treatment Current Visit: Yes Status: Acute Code(s): Z78.9 - OTHER SPECIFIED HEALTH STATUS SNOMED Code(s): 985578005 Plan: 1patient presented to hospital with left breast pain swelling and redness and has been diagnosed with a left breast abscess in this patient with recurrent history and has been on multiple courses of for antibiotic in outpatient setting high clinical suspicious for staphylococcal infection with a question of MRSA 2-patient is status post surgical evaluation and drainage of the abscess and culture which will be followed 3. Continue with vancomycin pharmacy to dose and cefepime pending cultures Dictation was produced using [employer] dictation software. please excuse any grammatical, word or spelling errors. Time with Patient: Less than 30
--- NOTE | 2023-10-30 11:34 | P.PN ---
Subjective Patient is a 57-year-old female with a long history of diabetes type 2 [id number]-mhqhrvdua, hypothyroidism, hyperlipidemia, anxiety/depression pre sents to ER with complaints of left breast swelling and redness. Patient has been having left breast cellulitis/infection for the past 1 month and completed 10-day antibiotic course followed by another 1 week with 2 g of antibiotics. Patient does not recollect the antibiotic name. Initially swelling and redness went down but started coming back again. Yesterday she noted to have the swelling and redness with bulging but denies any purulent discharge from the infection area but did have some nipple discharge yesterday.. No fever no chills. Patient did complain of pain on admission. No complaints of chest pain or shortness of breath. No nausea vomiting abdominal pain or diarrhea. Breast ultrasound was done in the ER showed the lower section of the breast the axilla and of the left breast and the rectal area lower of the left breast was scanned. Hypoechoic collection subcutaneous tissue Findings skin compatible subcutaneous phlegmon versus abscess. Laboratory data showed WBC 8.9 hemoglobin 13.4 and platelet 205 sodium 139 potassium 4.6 chloride 106 bicarb is 25 BUN 11 creatinine 0.6 and blood sugar is 95. Urinalysis not elevated. CRP 2.3 and ESR 40. 10/29/23 Patient s/p I&D and debridement of her left breast abscess infection Wound culture was sent Pain controlled Patient remains on cefepime and IV vancomycin She is on normal saline 75 mL/h Surgery case and ID following closely Increase inflammatory markers of CRP 2.3 and ESR 40 Blood culture is pending Wound culture is pending 10/30/23 Patient with no fever or leukocytosis She still has rash in the left breast area which looks the same She has pain about 3/10 Wound culture is pending after I&D yesterday She remains on cefepime and IV vancomycin Objective - Vital Signs Vital signs: Vital Signs Temp 97.7 F 10/30/23 08:00 Pulse 72 10/30/23 08:00 Resp 16 10/30/23 08:00 BP 147/78 10/30/23 08:00 Pulse Ox 95 10/30/23 08:00 FiO2 Intake & Output 10/29/23 10/30/23 10/30/23 18:59 06:59 18:59 Other: # Voids 2 3 - Exam GENERAL: The patient is alert and oriented x3, not in any acute distress. Well developed, well nourished. HEENT: Pupils are round and equally reacting to light. EOMI. No scleral icterus. No conjunctival pallor. Normocephalic, atraumatic. No pharyngeal erythema. No thyromegaly. CARDIOVASCULAR: S1 and S2 present. No murmurs, rubs, or gallops. -PULMONARY: Chest is clear to auscultation, no wheezing , no crackles. Left ken ast redness swelling at the center of the left breast ABDOMEN: Soft, nontender, nondistended, normoactive bowel sounds. No palpable organomegaly. MUSCULOSKELETAL: No joint swelling or deformity. EXTREMITIES: No cyanosis, clubbing, or pedal edema. NEUROLOGICAL: Gross neurological examination did not reveal any focal deficits. SKIN: No rashes. no petechiae. - Labs CBC & Chem 7: 10/29/23 06:55 10/29/23 06:55 Labs: Microbiology - Last 24 Hours (Table) 10/29/23 10:20 Gram Stain - Preliminary Breast - Left 10/27/23 16:29 Blood Culture - Preliminary Blood 10/27/23 16:29 Blood Culture - Preliminary Blood Assessment and Plan Assessment: Left breast abscess with surrounding cellulitis. Failed outpatient antibiotic therapy s/p I&D 10/28 Diabetes type 2 [id number] Hypothyroidism Anxiety/depression DVT prophylax with heparin subcu Plan: Patient will be continued on IV hydration with normal saline. Continue with cefepime and vancomycin and ID consult. Follow-up wound culture Infectious disease consult Start back on home medications and insulin regimen. Continue to follow closely. GI and DVT prophylaxis Time with Patient: Greater than 30
--- NOTE | 2023-10-30 12:32 | P.PN ---
Subjective Progress Note Date: 10/30/23 Principal diagnosis: Reason for follow-up with left breast abscess and cellulitis Patient is a 57-year-old female with a past medical history significant diabetes mellitus anxiety depression hypothyroidism apparently the patient has been dealing with left breast cellulitis for the last few months and has been treated with multiple courses of oral antibiotic now presented to hospital with worsening swelling redness to the left breast area has been diagnosed with a left breast abscess cellulitis and did have a bedside drainage completed on 10/29/2023. On today's evaluation that is 10/30/2023, Patient is afebrile patient is currently on room air and denies having any shortness of breath, the patient denies any chest pain or cough, the patient denies any nausea vomiting did not have any abdominal pain and no diarrhea still complaining of swelling and hardness to the left breast area. No new labs were ordered today cultures currently pending Objective - Vital Signs Vital signs: Vital Signs Temp 97.7 F 10/30/23 08:00 Pulse 72 10/30/23 08:00 Resp 16 10/30/23 08:00 BP 147/78 10/30/23 08:00 Pulse Ox 95 10/30/23 08:00 FiO2 Intake & Output 10/29/23 10/30/23 10/30/23 18:59 06:59 18:59 Other: # Voids 2 3 - Labs CBC & Chem 7: 10/29/23 06:55 10/29/23 06:55 Labs: Microbiology - Last 24 Hours (Table) 10/29/23 10:20 Gram Stain - Preliminary Breast - Left 10/27/23 16:29 Blood Culture - Preliminary Blood 10/27/23 16:29 Blood Culture - Preliminary Blood Assessment and Plan (1) Left breast abscess Current Visit: Yes Status: Acute Code(s): N61.1 - ABSCESS OF THE BREAST AND NIPPLE SNOMED Code(s): 67546403 (2) Cellulitis of left breast Current Visit: Yes Status: Acute Code(s): N61.0 - MASTITIS WITHOUT ABSCESS SNOMED Code(s): 68661343 (3) Failure of outpatient treatment Current Visit: Yes Status: Acute Code(s): Z78.9 - OTHER SPECIFIED HEALTH STATUS SNOMED Code(s): 303829725 Plan: 1patient presented to hospital with left breast pain swelling and redness and has been diagnosed with a left breast abscess in this patient with recurrent history and has been on multiple courses of for antibiotic in outpatient setting high clinical suspicious for staphylococcal infection with a question of MRSA 2-patient is status post surgical drainage with cultures currently pending 3. Patient to continue with vancomycin pharmacy to dose and cefepime while waiting for the culture to finalize Dictation was produced using [employer] dictation software. please excuse any grammatical, word or spelling errors. Time with Patient: Less than 30
--- NOTE | 2023-10-30 15:35 | P.PN ---
Subjective Progress Note Date: 10/30/23 CHIEF COMPLAINT: Left breast abscess HISTORY OF PRESENT ILLNESS: Patient is status post bedside I&D of left breast abscess. Patient is still some erythema and pain. She remains on antibiotics. Afebrile. Culture from left breast abscess presumptive Staph aureus Patient seen and examined with Dr. Posada PHYSICAL EXAM: VITAL SIGNS: Reviewed. GENERAL: Well-developed in no acute distress. Breast: Left breast dressing clean dry and intact. Evidence of erythema ASSESSMENT: 1. Left breast abscess status post bedside I&D PLAN: -Continue antibiotics per infectious disease -Encourage patient to shower daily Physician Lozenge Maker note has been reviewed by physician. Signing provider agrees with the documented findings, assessment, and plan of care. Objective - Vital Signs Vital signs: Vital Signs Temp 97.7 F 10/30/23 08:00 Pulse 72 10/30/23 08:00 Resp 16 10/30/23 08:00 BP 147/78 10/30/23 08:00 Pulse Ox 95 10/30/23 08:00 FiO2 Intake & Output 10/29/23 10/30/23 10/30/23 18:59 06:59 18:59 Other: # Voids 2 3 - Labs CBC & Chem 7: 10/29/23 06:55 10/29/23 06:55 Labs: Microbiology - Last 24 Hours (Table) 10/29/23 10:20 Gram Stain - Preliminary Breast - Left Wound Culture - Preliminary Presumptive Staph aureus 10/27/23 16:29 Blood Culture - Preliminary Blood 10/27/23 16:29 Blood Culture - Preliminary Blood
[2023-10-30] MEDS: LOPERAMIDE 2 MG CAP PO STA (17:07)
[2023-10-30] MEDS: PANTOPRAZOLE 40 MG TABLET PO SCH (17:07)
[2023-10-31 08:46] VITALS: RESP 20
[2023-10-31] MEDS: CHOLESTYRAMINE (WITH SUGAR) 4 GM PACKET PO SCH (08:56)
[2023-10-31 09:09] LABS: African American GFR (CKD) >90 (>60 ml/min/1.73 sqM); Non-African American GFR(CKD) >90 (>60 ml/min/1.73 sqM)
[2023-10-31] MEDS: VANCOMYCIN TROUGH DUE 1 EACH MISC MISCELLANE ONE (10:49)
[2023-10-31] MEDS: VANCOMYCIN 1,500 MG in SODIUM CHLORIDE 0.9% 500 ML 500 ML IVPB SCH (10:49)
--- NOTE | 2023-10-31 14:12 | P.PN ---
Subjective Progress Note Date: 10/31/23 CHIEF COMPLAINT: Left breast abscess HISTORY OF PRESENT ILLNESS: Patient is status post bedside I&D of left breast abscess on 10/29/23. patient reports she feels about the same. Continues to have some pain in the left breast. She's had very minimal drainage. She did shower. She remains on antibiotics. Afebrile. Culture from left breast abscess MSSA PHYSICAL EXAM: VITAL SIGNS: Reviewed. GENERAL: Well-developed in no acute distress. Breast: Left breast erythema and tenderness with palpation. Slightly less tender. Minimal serosanguineous drainage noted and bandage ASSESSMENT: 1. Left breast abscess status post bedside I&D PLAN: -Continue antibiotics per infectious disease -Encourage patient to shower daily -added warm compresses -No further surgical intervention plan Physician Web Weaver note has been reviewed by physician. Signing provider agrees with the documented findings, assessment, and plan of care. Objective - Vital Signs Vital signs: Vital Signs Temp 97.5 F L 10/31/23 08:41 Pulse 73 10/31/23 08:41 Resp 20 10/31/23 08:41 BP 138/81 10/31/23 08:41 Pulse Ox 98 10/31/23 00:00 FiO2 Intake & Output 10/30/23 10/31/23 10/31/23 18:59 06:59 18:59 Other: # Voids 2 - Labs CBC & Chem 7: 10/29/23 06:55 10/31/23 08:00 Labs: Microbiology - Last 24 Hours (Table) 10/29/23 10:20 Gram Stain - Final Breast - Left Wound Culture - Final Staphylococcus aureus 10/29/23 10:26 Anaerobic Culture - Preliminary Breast - Left 10/27/23 16:29 Blood Culture - Preliminary Blood 10/27/23 16:29 Blood Culture - Preliminary Blood
[2023-10-31 15:26] VITALS: BP 125/87; PULSE 82; TEMP 98
--- NOTE | 2023-10-31 15:51 | P.PN ---
Subjective Progress Note Date: 10/31/23 Principal diagnosis: Reason for follow-up with left breast abscess and cellulitis Patient is a 57-year-old female with a past medical history significant diabetes mellitus anxiety depression hypothyroidism apparently the patient has been dealing with left breast cellulitis for the last few months and has been treated with multiple courses of oral antibiotic now presented to hospital with worsening swelling redness to the left breast area has been diagnosed with a left breast abscess cellulitis and did have a bedside drainage completed on 10/29/2023. On today's evaluation that is 10/31/2023, patient has been afebrile, patient is breathing comfortably and is currently on room air, patient denies having any significant cough no chest pain shortness of breath, patient denies nausea vomiting or diarrhea and no abdominal pain patient overall pain and swelling to the left mass has decreased feeling better wants to go home. Patient did have a creatinine 0.62 culture finalized with MSSA anaerobe cultures pending blood cultures were negative Objective - Vital Signs Vital signs: Vital Signs Temp 97.5 F L 10/31/23 08:41 Pulse 73 10/31/23 08:41 Resp 20 10/31/23 08:41 BP 138/81 10/31/23 08:41 Pulse Ox 98 10/31/23 00:00 FiO2 Intake & Output 10/30/23 10/31/23 10/31/23 18:59 06:59 18:59 Other: # Voids 2 - Exam GENERAL DESCRIPTION: Middle-aged female lying in bed in no distress RESPIRATORY SYSTEM: Unlabored breathing , decreased breath sounds at bases HEART: S1 S2 regular rate and rhythm , ABDOMEN: Soft , no tenderness Left breast swelling and redness has decreased mild induration no fluctuation or drainage - Labs CBC & Chem 7: 10/29/23 06:55 10/31/23 08:00 Labs: Microbiology - Last 24 Hours (Table) 10/27/23 16:29 Blood Culture - Preliminary Blood 10/27/23 16:29 Blood Culture - Preliminary Blood 10/29/23 10:20 Gram Stain - Preliminary Breast - Left Wound Culture - Preliminary Presumptive Staph aureus Assessment and Plan (1) Left breast abscess Current Visit: Yes Status: Acute Code(s): N61.1 - ABSCESS OF THE BREAST AND NIPPLE SNOMED Code(s): 76774856 (2) Cellulitis of left breast Current Visit: Yes Status: Acute Code(s): N61.0 - MASTITIS WITHOUT ABSCESS SNOMED Code(s): 23216267 (3) Failure of outpatient treatment Current Visit: Yes Status: Acute Code(s): Z78.9 - OTHER SPECIFIED HEALTH STATUS SNOMED Code(s): 544365781 Plan: 1patient presented to hospital with left breast pain swelling and redness and has been diagnosed with a left breast abscess in this patient with recurrent his tory and has been on multiple courses of for antibiotic in outpatient setting high clinical suspicious for staphylococcal infection with a question of MRSA 2-patient is status post surgical drainage with cultures currently growing MSSA 3. Patient insisting on going home prescription for oral Keflex has been sent to the pharmacy with instruction to follow-up in the office in a week discussed with REINFORCER for admitting team Dictation was produced using [employer] dictation software. please excuse any gram matical, word or spelling errors. Time with Patient: Less than 30
--- NOTE | 2023-11-06 10:21 | P.DS ---
Providers Date of admission: 10/27/23 16:47 Expected date of discharge: 10/31/23 Attending physician: Maria De Jesus Nelson Consults: 10/28/23 15:28 Consult Physician Urgent Consulting Provider: Burton Mariano Consult Reason/Comments: left breast abcess Do you want consulting provider notified?: Already Contacted 10/29/23 09:40 Consult Physician Stat Consulting Provider: Enzo Posada Consult Reason/Comments: left breast abcess Do you want consulting provider notified?: Yes Primary care physician: Coty Gooden Hospital Course: Final diagnosis Left breast abscess with surrounding cellulitis. Failed outpatient antibiotic therapy s/p I&D 10/28. Cultures finalized Staph aureus with sensitivities Diabetes type 2 [id number] Hypothyroidism Anxiety/depression DVT prophylax with heparin subcu Discharge disposition Patient is being discharged in a stable condition with guarded prognosis to home. Patient will follow-up with Dr. Gooden in the outpatient setting upon discharge. Patient is to continue with oral antibiotics per infectious disease and close outpatient follow-up with general surgery and Dr. Mariano as scheduled. Total time taken is greater than 35 minutes. Hospital course This is a 57-year-old female who was recently admitted with left breast abscess with surrounding cellulitis. Patient reports this has been ongoing for the last 1 to 2 months and has been on antibiotics outpatient with failure of treatment as the redness and swelling and induration significantly worsened over the last few days. Patient was evaluated by general surgery underwent incision and drainage and cultures finalized with Staph aureus. Patient being followed by infectious disease maintained on IV antibiotics showing improvements and will be discharged home on oral antibiotics with close outpatient follow-up. Please refer to other consultation notes for further HPI. Patient reports to feeling well and would like to go home. Encouraged meticulous handwashing and local wound care and avoiding touching the area other than applying warm compresses 3 times daily as needed to the left breast. Currently no reports of chest pain, shortness of breath, or palpitations. Patient is afebrile. No reports of nausea or vomiting and patient is tolerating diet. Patient will be discharged home today. Physical exam: Gen: This is a 57-year-old female who is awake, alert and oriented x 3, well- developed well-nourished, obese HEENT: Head is atraumatic, normocephalic. Pupils equal, round. Sclerae is anicteric. NECK: Supple. No JVD. No lymphadenopathy. No thyromegaly. LUNGS: Clear to auscultation. No wheezes or rhonchi. No intercostal retractions. Left breast with some minimal redness that appears to be improving and less indurated with minimal scant amount of clear drainage noted in the areola HEART: Regular rate and rhythm. No murmur. ABDOMEN: Soft. Obese bowel sounds are present. No masses. No tenderness. EXTREMITIES: No pedal edema. No calf tenderness. NEUROLOGICAL: Patient is awake, alert and oriented x3. Cranial nerves 2 through 12 are grossly intact. Please refer to medication reconciliation sheet for a list of medications. The impression and plan of care has been dictated by Erum Kerr, Nurse Practitioner as directed. Dr. Arron MD I have performed a history and examination and MDM of this patient, discussed the same with the dictator, and agree with the dictator's assessment and plan as written ,documented as a scribe. Based on total visit time, I have performed more than 50% of the visit. Patient Condition at Discharge: Stable Plan - Discharge Summary Discharge Rx Participant: No New Discharge Prescriptions: New Pantoprazole [Protonix] 40 mg PO DAILY #15 tab Cholestyramine (with Sugar) [Questran Packet] 4 gm PO DAILY@1000 PRN #20 packet PRN Reason: Diarrhea Acetaminophen Tab [Tylenol] 650 mg PO Q6HR PRN tab PRN Reason: Mild Pain Or Fever > 100.5 Cephalexin [Keflex] 500 mg PO Q6HR 14 Days #56 cap Nicotine 14Mg/24Hr Patch [Habitrol] 1 patch TRANSDERM DAILY patch Ibuprofen [Motrin] 400 mg PO Q6HR PRN #40 tab PRN Reason: Mild Pain Or Fever > 100.5 Continue Levothyroxine Sodium [Synthroid] 175 mcg PO DAILY Citalopram Hydrobromide [CeleXA] 20 mg PO DAILY LORazepam [Ativan] 1 mg PO DAILY Cyclobenzaprine [Flexeril] 10 mg PO DAILY Atorvastatin [Lipitor] 80 mg PO DAILY lamoTRIgine 100 mg PO DAILY metFORMIN HCL [Glucophage] 850 mg PO DAILY lisinopriL [Zestril] 10 mg PO DAILY Discharge Medication List Levothyroxine Sodium [Synthroid] 175 mcg PO DAILY 11/01/14 [History] Atorvastatin [Lipitor] 80 mg PO DAILY 10/27/23 [History] Citalopram Hydrobromide [CeleXA] 20 mg PO DAILY 10/27/23 [History] Cyclobenzaprine [Flexeril] 10 mg PO DAILY 10/27/23 [History] LORazepam [Ativan] 1 mg PO DAILY 10/27/23 [History] lamoTRIgine 100 mg PO DAILY 10/27/23 [History] lisinopriL [Zestril] 10 mg PO DAILY 10/27/23 [History] metFORMIN HCL [Glucophage] 850 mg PO DAILY 10/27/23 [History] Acetaminophen Tab [Tylenol] 650 mg PO Q6HR PRN tab 10/31/23 [Rx] Cephalexin [Keflex] 500 mg PO Q6HR 14 Days #56 cap 10/31/23 [Rx] Cholestyramine (with Sugar) [Questran Packet] 4 gm PO DAILY@1000 PRN #20 packet 10/31/23 [Rx] Ibuprofen [Motrin] 400 mg PO Q6HR PRN #40 tab 10/31/23 [Rx] Nicotine 14Mg/24Hr Patch [Habitrol] 1 patch TRANSDERM DAILY patch 10/31/23 [Rx] Pantoprazole [Protonix] 40 mg PO DAILY #15 tab 10/31/23 [Rx] Follow up Appointment(s)/Referral(s): Coty Gooden MD [Primary Care Provider] - 1-2 days Burton Mariano MD [STAFF PHYSICIAN] - 1 Week Enzo Posada MD [STAFF PHYSICIAN] - 1 Week Activity/Diet/Wound Care/Special Instructions: activity limited until follow up follow up with surgery outpatient follow up with pcp on discharge follow up with Dr. Mariano in one to two weeks continue taking medications as prescribed continue warm compresses 3-4 times daily shower daily Discharge Disposition: HOME SELF-CARE
== END 2023-10-31 16:35 | disposition home or self-care (01) | DRG 585 ==
LOC: EC 14:03 → 5NMEDONC 16:47 → 4FBP 20:22
PROVIDERS: ADMIT Internal Medicine; ATTEND Internal Medicine
PROC: 0H9U0ZZ Drainage of Left Breast, Open Approach (ICD-10-PCS; principal; 2023-10-29)
DX: N61.1 Abscess of the breast and nipple (principal); E11.9 Type 2 diabetes mellitus without complications; E03.9 Hypothyroidism, unspecified; F32.A Depression, unspecified; B95.61 Methicillin susceptible Staphylococcus aureus infection as the cause of diseases classified elsewhere; E78.5 Hyperlipidemia, unspecified; N64.52 Nipple discharge; F41.9 Anxiety disorder, unspecified; Z79.84 Long term (current) use of oral hypoglycemic drugs; Z79.890 Hormone replacement therapy; Z79.899 Other long term (current) drug therapy
CPT/HCPCS: 36415; 80048; 80053; 80202; 82565; 83605; 85025; 85652; 86140; 87040; 87070; 87075; 87077; 87186; 87205; 96361; 96374; 99285